=== PATIENT | female | born 1950 | race Caucasian/White ===

== ENCOUNTER → 2017-12-15 | Outpatient (CLI) | payer OTHER ==
[~2017-12-15] MED LIST: AMIT100T PO; BACL20TA PO; METOPROLOL PO; RIVA20TA PO; SERT100T5 PO; SIMV20TA3 PO
[2017-12-15 09:08] LABS: BASOPHILS # (AUTO) 0.02 x10^3/uL (0-0.1); BASOPHILS % (AUTO) 0 % (0-1); EOSINOPHILS # (AUTO) 0.12 x10^3/uL (0-0.4); EOSINOPHILS % (AUTO) 2 % (1-7); LYMPHOCYTES # (AUTO) 1.16 x10^3/uL (1-3.4); LYMPHOCYTES % (AUTO) 14 % (22-44); MD NO; MEAN CORPUSCULAR HEMOGLOBIN 28.4 pg (27.0-34.8); MEAN CORPUSCULAR HGB CONC 32.7 g/dL (32.4-35.8); MEAN PLATELET VOLUME 8.3 fL (7.4-10.4); MONOCYTES # (AUTO) 0.39 x10^3/uL (0.2-0.8); MONOCYTES % (AUTO) 5 % (2-9); NEUTROPHILS # (AUTO) 6.42 x10^3/uL (1.8-6.8); NEUTROPHILS % (AUTO) 79 % (42-75); PLATELET COUNT 285 x10^3/uL (130-400); RED BLOOD COUNT 4.82 x10^6/uL (3.82-5.3)
[2017-12-15 09:11] LABS: HCT (SEDRATE) 41.9 % (34.6-47.8)
[2017-12-15 09:20] LABS: INTERNATIONAL NORMALIZED RATIO 1.14 (0.93-1.1); PROTHROMBIN TIME 11.8 Seconds (9.6-11.5)
[2017-12-15 09:22] LABS: ALANINE AMINOTRANSFERASE 19 U/L (12-78); ALBUMIN 3.3 g/dL (3.4-5.0); ANION GAP 6 mmol/L (5-15); CALCIUM 8.6 mg/dL (8.5-10.1); CHLORIDE 98 mmol/L (98-107); CREATININE 1.01 mg/dL (0.55-1.02)
[2017-12-15 09:25] LABS: ALKALINE PHOSPHATASE 149 U/L (45-117); BILIRUBIN,TOTAL 0.4 mg/dL (0.2-1.0); TOTAL PROTEIN 7.4 g/dL (6.4-8.2)
[2017-12-15 13:49] LABS: CULTURE INDICATED? YES; MICROSCOPIC INDICATED
== END | disposition home or self-care (01) ==
LOC: STAR 07:42
PROVIDERS: ATTEND Orthopaedic Surgery Orthopaedic Surgery of the Spine
DX: Z01.818 Encounter for other preprocedural examination (principal); I48.91 Unspecified atrial fibrillation; M48.061 Spinal stenosis, lumbar region without neurogenic claudication; M47.896 Other spondylosis, lumbar region; M96.1 Postlaminectomy syndrome, not elsewhere classified
CPT/HCPCS: 36415; 71046; 80053; 80074; 81001; 85025; 85610; 85651; 85730; 87086; 87806; 93005; G0475

== ENCOUNTER 2019-09-07 05:53 | Day surgery (SDC) | payer MEDICARE ==
[~2019-09-07] VITALS: Ht 167.6 cm; Wt 123.0 kg
[~2019-09-07 05:53] MED LIST changes: +SERT100T32 PO; -SERT100T5 PO; +SIMV20TA19 PO; -SIMV20TA3 PO
[2019-09-07 07:23] LABS: BASOPHILS # (AUTO) 0.03 x10^3/uL (0-0.1); BASOPHILS % (AUTO) 0 % (0-1); EOSINOPHILS # (AUTO) 0.33 x10^3/uL (0-0.4); EOSINOPHILS % (AUTO) 4 % (1-7); LYMPHOCYTES # (AUTO) 1.21 x10^3/uL (1-3.4); LYMPHOCYTES % (AUTO) 16 % (22-44); MD NO; MEAN CORPUSCULAR HGB CONC 31.8 g/dL (32.4-35.8); MEAN CORPUSCULAR VOLUME 81.9 fL (80-100); MEAN PLATELET VOLUME 8.4 fL (7.4-10.4); MONOCYTES # (AUTO) 0.49 x10^3/uL (0.2-0.8); MONOCYTES % (AUTO) 6 % (2-9); NEUTROPHILS # (AUTO) 5.61 x10^3/uL (1.8-6.8); NEUTROPHILS % (AUTO) 73 % (42-75); PLATELET COUNT 272 x10^3/uL (130-400); RED BLOOD COUNT 4.48 x10^6/uL (3.82-5.3); RED CELL DISTRIBUTION WIDTH 15.1 % (9.6-15.2)
[2019-09-07 07:27] VITALS: BP 129/82
[2019-09-07] MEDS ORDERED: MIDAZOLAM 1 MG/ML, 5ML ONE ×2 (08:09)
[2019-09-07] MEDS ORDERED: FENTANYL PF 100 MCG/2ML ONE (08:09)
[2019-09-07] MEDS ORDERED: FLUMAZENIL 0.1 MG/1 ML, 5ML ONE (08:10)
[2019-09-07] MEDS ORDERED: NALOXONE 1 MG/ML, 2ML ONE (08:10)
[2019-09-07] MEDS ORDERED: LIDOCAINE 1%, 10ML ONE (08:13)
[2019-10-11] MEDS ORDERED: CYAN50008 PO (08:45)
[2019-10-11] MEDS ORDERED: BREX1TAB PO (08:45)
[2019-10-11] MEDS ORDERED: POTA20TA14 PO (08:45)
[2019-10-11] MEDS ORDERED: FURO20TA3 PO (08:45)
[2019-10-11] MEDS ORDERED: OXYC-307 PO (08:45)
[2019-11-01] MEDS ORDERED: METO-95 PO (09:12)
[2019-11-01] MEDS ORDERED: CALC1TAB68 PO (09:12)
== END 2019-09-07 10:15 | disposition home or self-care (01) ==
LOC: OUT 05:53
PROVIDERS: ATTEND Pathology Hematology
DX: C82.12 Follicular lymphoma grade II, intrathoracic lymph nodes (principal); I48.20 Chronic atrial fibrillation, unspecified; I10 Essential (primary) hypertension; E11.9 Type 2 diabetes mellitus without complications; E78.5 Hyperlipidemia, unspecified; Z79.01 Long term (current) use of anticoagulants; Z79.899 Other long term (current) drug therapy; Z87.891 Personal history of nicotine dependence; Z88.8 Allergy status to other drugs, medicaments and biological substances
CPT/HCPCS: 36415; 38222; 77012; 85025; 85060; 85097; 88184; 88185; 88237; 88264; 88280; 88305; 88311; 88313; 99156; 99157; J2250; J3010; J2310

== ENCOUNTER → 2019-12-01 | Outpatient (CLI) | payer MEDICARE ==
[~2019-12-01] MED LIST changes: +BREX1TAB PO; +CALC1TAB68 PO; +CYAN50008 PO; +FURO20TA3 PO; +METO-95 PO; +OXYC-307 PO; +POTA20TA14 PO
== END | disposition home or self-care (01) ==
LOC: PETCFH 08:43
PROVIDERS: ATTEND Pathology Hematology
DX: C82.12 Follicular lymphoma grade II, intrathoracic lymph nodes (principal); I25.10 Atherosclerotic heart disease of native coronary artery without angina pectoris; K44.9 Diaphragmatic hernia without obstruction or gangrene; K57.30 Diverticulosis of large intestine without perforation or abscess without bleeding
CPT/HCPCS: 78815; A9552